=== PATIENT | female | born 1985 | race Caucasian/White ===

== ENCOUNTER 2024-05-20 14:18 | Emergency (ER) | payer MEDICAID ==
[~2024-05-20] VITALS: Ht 170.2 cm; Wt 81.8 kg
[2024-05-20 14:29] VITALS: BP 108/57; PULSE 97; TEMP 97.7; O2SAT 98
[2024-05-20 15:20] VITALS: RESP 16
[2024-05-20] MEDS: ketorolac trometh 15mg/ml vial 15 MG/ML ML IM ONE (15:20)
== END 2024-05-20 15:44 | disposition home or self-care (01) ==
LOC: ER 14:19
DX: S20.20XA Contusion of thorax, unspecified, initial encounter (principal); X58.XXXA Exposure to other specified factors, initial encounter; Y93.89 Activity, other specified; Y92.89 Other specified places as the place of occurrence of the external cause; Y99.8 Other external cause status
CPT/HCPCS: 71045; 96372; 99283; J1885

== ENCOUNTER 2024-05-23 14:24 | Emergency (ER) | payer MEDICAID ==
[~2024-05-23] VITALS: Ht 170.2 cm; Wt 81.8 kg
[2024-05-23 14:38] VITALS: TEMP 98.3
[2024-05-23] MEDS ORDERED: NAPR-56 PO (15:22)
[2024-05-23] MEDS ORDERED: LIDO700A47 TOP (15:22)
[2024-05-23] MEDS: ketorolac trometh 30MG/ML vial 30 MG/ML VIAL IM ONE (16:01)
[2024-05-23 16:06] VITALS: BP 112/52; PULSE 77; RESP 15; O2SAT 98
== END 2024-05-23 16:10 | disposition home or self-care (01) ==
LOC: ER 14:25 → EEVIPCON 14:25 → ER 16:10
DX: R07.89 Other chest pain (principal); Z79.899 Other long term (current) drug therapy
CPT/HCPCS: 71101; 96372; 99283; J1885

== ENCOUNTER 2024-12-10 17:02 | Emergency (ER) | payer BC, MEDICAID ==
[~2024-12-10] VITALS: Ht 170.2 cm; Wt 84.1 kg
[~2024-12-10 17:02] MED LIST: LIDO700A47 TOP
[2024-12-10 18:02] LABS: BILIRUBIN,URINE NEGATIVE (Neg); CLARITY,URINE CLEAR (Clear); COLOR,URINE YELLOW (Yellow); GLUCOSE, URINE NEGATIVE (Neg); KETONES,URINE TRACE mg/dl (Neg); LEUKOCYTE ESTERASE ,URINE NEGATIVE (Neg); NITRITES, URINE NEGATIVE (Neg); OCCULT BLOOD,URINE NEGATIVE (Neg); PROTEIN,URINE NEGATIVE (Neg); UROBILINOGEN,URINE 0.2 E.U/dL (0.2-1.0)
[2024-12-10 18:04] LABS: ALANINE AMINOTRANSFERASE 28 U/L (12-78); ALBUMIN 4.1 G/DL (3.4-5.0); ALBUMIN/GLOBULIN RATIO 1.2 (1.1-1.5); ALKALINE PHOSPHATASE 43 IU/L (46-116); ANION GAP 9 (8-16); ASPARTATE AMINO TRANSFERASE 23 U/L (10-37); BILIRUBIN,TOTAL 0.6 MG/DL (0.1-1.0); BLOOD UREA NITROGEN 13 MG/DL (7-18); BUN/CREATININE RATIO 17.1 (10.0-20.0); CALCIUM 8.6 MG/DL (8.5-10.1); CHLORIDE 104 MMOL/L (99-107); CREATININE 0.76 MG/DL (0.40-0.90); GLUCOSE 83 MG/DL (70-104); SODIUM 138 MMOL/L (135-145); TOTAL CARBON DIOXIDE 24.9 MMOL/L (24-32); TOTAL PROTEIN 7.6 G/DL (6.4-8.2); eCRCL 96 ML/MIN; eGFR 84 ML/MIN
[2024-12-10 18:20] LABS: HIV ANTIBODY 1&2 RAPID NON-REACTIVE (Neg)
[2024-12-10 18:38] LABS: UA COLLECTION TYPE NON-SPECIFIED
[2024-12-10] MEDS ORDERED: DOXY100T29 PO (19:36)
[2024-12-10] MEDS: CefTRIAXone 1000mg IM Kit (w/lidocaine diluent) IM ONE (19:42)
[2024-12-10 19:46] VITALS: BP 128/68; PULSE 78; RESP 16; TEMP 98.3; O2SAT 98
[2024-12-12 11:12] LABS: HBSAG SCREEN Negative (Negative); HEP A AB, IGM Negative (Negative); HEP B CORE AB, IGM Negative (Negative); HEPATITIS C VIRUS ANTIBODY Non Reactive (Non Reactive)
== END 2024-12-10 19:48 | disposition home or self-care (01) ==
LOC: EEVIPCON 17:03 → ER 17:03
DX: R30.0 Dysuria (principal)
CPT/HCPCS: 36415; 80053; 80074; 81003; 86703; 87070; 87491; 87591; 96372; 99283; J0696; Q0112

== ENCOUNTER 2025-01-15 08:19 | Outpatient (CLI) | payer BC ==
[~2025-01-15 08:19] MED LIST changes: +DOXY100T29 PO
[2025-01-15 09:33] LABS: FREE T4 (FREE THYROXINE) 0.88 NG/DL (0.73-1.40); THYROID STIMULATING HORMONE 7.63 ulU/ml (0.34-4.50)
== END 2025-01-15 23:59 | disposition home or self-care (01) ==
LOC: LAB 08:19
PROVIDERS: ATTEND Student in an Organized Health Care Education/Training Program
DX: E03.9 Hypothyroidism, unspecified (principal)
CPT/HCPCS: 36415; 84439; 84443